=== PATIENT | male | born 1990 | race Two or more races ===

== ENCOUNTER 2016-10-05 07:54 | Emergency (ER) | payer BC ==
[~2016-10-05] VITALS: Ht 170.2 cm; Wt 58.5 kg
[2016-10-05 07:54] VITALS: BP 127/70
--- NOTE | 2016-10-05 08:08 | NUR ---
Self present to ed due to epigastric pain/discomfort. Patient stated "I just feel like im full of acids". Patient reported vomitting this morning and had episode of weakness., Patient's skin is warm to touch and non diaphoretic. Afebrile. Vss. will cont to monitor
== END 2016-10-05 08:31 | disposition home or self-care (01) ==
LOC: ER 07:56
DX: K52.9 Noninfective gastroenteritis and colitis, unspecified (principal); F17.200 Nicotine dependence, unspecified, uncomplicated
CPT/HCPCS: 99283; A4606; Z7610

== ENCOUNTER 2017-01-18 21:50 | Emergency (ER) | payer BC, MEDICAID, OTHER ==
[~2017-01-18] VITALS: Ht 170.2 cm; Wt 59.0 kg
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
--- NOTE | 2017-01-18 22:19 | NUR ---
DR. ALDRIDGE AT BEDSIDE FOR EVAL.
--- NOTE | 2017-01-18 22:58 | NUR ---
XRAY AT BEDSIDE
[2017-01-18] MEDS ORDERED: IBUPROFEN 400 MG TABLET ONE (23:54)
[2017-01-19] MEDS ORDERED: IBUPROFEN 400 MG TABLET PO ONE
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
[2017-01-19 00:04] VITALS: BP 152/78
== END 2017-01-19 00:04 ==
LOC: ER 21:51
DX: S50.12XA Contusion of left forearm, initial encounter (principal); S50.02XA Contusion of left elbow, initial encounter; S40.012A Contusion of left shoulder, initial encounter; F17.200 Nicotine dependence, unspecified, uncomplicated; V49.49XA Driver injured in collision with other motor vehicles in traffic accident, initial encounter; Y93.89 Activity, other specified; Y92.89 Other specified places as the place of occurrence of the external cause; Y99.9 Unspecified external cause status
CPT/HCPCS: 73030; 73060; 73080; 73090; 99284; A4606; Z7610